=== PATIENT | male | born 2000 | race Caucasian/White ===

== ENCOUNTER 2019-07-04 11:53 | Emergency (ER) | payer OTHER ==
[~2019-07-04] VITALS: Ht 177.8 cm; Wt 76.4 kg
--- NOTE | 2019-07-04 12:33 | REP ---
Right foot two view : There is no fracture or dislocation. Mineralization and joint spaces are normal. There are no calcifications or foreign bodies. Impression: Negative right foot . Electronically Signed by Kwan Triana MD 07/04/2019 12:25 P
--- NOTE | 2019-07-04 12:33 | REP ---
Right ankle four views : There is no fracture or dislocation. Mineralization and joint spaces are normal. There are no calcifications or foreign bodies. Impression: Negative right ankle . Electronically Signed by Kwan Triana MD 07/04/2019 12:24 P
[2019-07-04 13:14] VITALS: BP 149/63
== END 2019-07-04 13:14 | disposition home or self-care (01) ==
LOC: M ED 11:53
DX: S90.811A Abrasion, right foot, initial encounter (principal); S90.31XA Contusion of right foot, initial encounter; W22.8XXA Striking against or struck by other objects, initial encounter; Y92.138 Other place on military base as the place of occurrence of the external cause; Y93.B9 Activity, other involving muscle strengthening exercises; Y99.1 Military activity